=== PATIENT | male | born 1995 | race Caucasian/White ===

== ENCOUNTER 2017-01-31 22:25 | Emergency (ER) | payer BC ==
[~2017-01-31] VITALS: Ht 182.9 cm; Wt 88.6 kg
[2017-01-31 22:27] VITALS: TEMP 98.3
[2017-02-01 00:27] VITALS: BP 122/70; PULSE 85
== END 2017-02-01 00:28 | disposition home or self-care (01) ==
LOC: COL.ER 22:25
DX: S61.052A Open bite of left thumb without damage to nail, initial encounter (principal); Z23 Encounter for immunization; W55.81XA Bitten by other mammals, initial encounter; Y92.009 Unspecified place in unspecified non-institutional (private) residence as the place of occurrence of the external cause